=== PATIENT | female | born 1985 | race Two or more races ===

== ENCOUNTER 2023-03-30 09:50 | Outpatient (CLI) | payer OTHER | END 2023-03-30 09:57 | disposition home or self-care (01) | LOC: RX STUDY 09:50 | PROVIDERS: ATTEND Obstetrics & Gynecology Reproductive Endocrinology | DX: N70.11 Chronic salpingitis (principal) ==

== ENCOUNTER 2024-05-11 22:39 | Inpatient (IN) | payer OTHER ==
[~2024-05-11] VITALS: Ht 165.1 cm; Wt 84.4 kg
[2024-05-11 22:20] VITALS: BP 135/82
[2024-05-11] MEDS ORDERED: OBSTETRIX DHA1 EAC1 PO (22:41)
[2024-05-11] MEDS ORDERED: VITAMIN D310 MCG/1 M PO (22:42)
[2024-05-11] MEDS ORDERED: RINGERS SOLUTION,LACTATED 1,000 ML IV SCH (22:45)
[2024-05-11] MEDS ORDERED: AMPICILLIN SODIUM 2,000 MG VIAL IV ONE (23:00)
[2024-05-11 23:12] LABS: HEMATOCRIT 32.7 % (36.0-45.00); HEMOGLOBIN 11.1 g/dL (12.0-15.00); MEAN CELL VOLUME 82.6 fL (80.00-100.00); MEAN CORPUSCULAR HEMOGLOBIN 28.1 pg (27.00-32.0); MEAN CORPUSCULAR HGB CONC 34.1 g/dl (32.0-36.0); RED BLOOD COUNT 3.96 M/uL (4.00-6.00); RED CELL DISTRIBUTION WIDTH 13.5 % (11.5-14.5)
[2024-05-11 23:20] VITALS: BP 123/93
[2024-05-11 23:39] LABS: PLATELET COUNT 127 K/uL (150-450)
[2024-05-11] MEDS ORDERED: BETAMETHASONE ACETATE,SOD PHOS 30 MG/5 ML ML IM ONE (23:45)
[2024-05-11 23:46] LABS: INR 0.96; PROTHROMBIN TIME 10.5 SECONDS (9.0-11.5)
[2024-05-11 23:51] LABS: ALBUMIN 2.8 gm/dL (3.4-5.0); BILIRUBIN TOTAL 0.39 mg/dL (0.3-1.2); CALCIUM 8.8 mg/dL (8.5-10.1); CREATININE SERUM 0.57 mg/dL (0.55-1.02); GFR 118.08; GLOBULINA 2.9 G/DL (2.4-3.5); POTASSIUM 3.69 mEq/L (3.5-5.1); TOTAL PROTEIN 5.7 gm/dL (6.4-8.2)
[2024-05-12] VITALS (10 sets, daily range): BP systolic 118–148; BP diastolic 72–94; O2SAT 97
[2024-05-12] MEDS ORDERED: AMPICILLIN SODIUM 1,000 MG VIAL IV SCH ×2 (04:00→09:00)
[2024-05-12] MEDS ORDERED: OXYTOCIN 500 ML IV ONE (08:15)
[2024-05-12] MEDS ORDERED: AMPICILLIN SODIUM 2,000 MG VIAL IV ONE (08:30)
[2024-05-12] MEDS ORDERED: MORPHINE SULFATE 4 MG/ML CARTRIDGE IV ONE (13:15)
[2024-05-12] MEDS ORDERED: ONDANSETRON HCL 2 MG/ML VIAL ONE (16:38)
[2024-05-12] MEDS ORDERED: FAMOTIDINE/PF 20 MG/2 ML VIAL ONE (16:40)
[2024-05-12] MEDS ORDERED: ONDANSETRON HCL 2 MG/ML VIAL IV ONE (17:00)
[2024-05-12] MEDS ORDERED: FAMOTIDINE/PF 20 MG/2 ML VIAL IV PUSH ONE (17:00)
[2024-05-12] MEDS ORDERED: OXYTOCIN 20 UNITS/1000ML RL PIGGYBAG IV ONE (17:18)
[2024-05-12] MEDS ORDERED: ERYTHROMYCIN BASE OPHT 1GM EACH TUBE OP ONE ×2 (17:18→18:45)
[2024-05-12] MEDS ORDERED: CHLORHEXIDINE GLUCONATE 120 ML BOTTLE TOP ONE (17:18)
[2024-05-12] MEDS ORDERED: LIDOCAINE HCL 1% 10ML VIAL ONE (17:19)
[2024-05-12] MEDS ORDERED: CHLORHEXIDINE GLUCONATE 120 ML BOTTLE TOP SCH (18:30)
[2024-05-12] MEDS ORDERED: IBUprofen 400 MG TABLET PO PRN (18:30)
[2024-05-12] MEDS ORDERED: OXYTOCIN 1,000 ML IV SCH (18:30)
[2024-05-12] MEDS ORDERED: LIDOCAINE HCL 1% 10ML VIAL PERCUT ONE (18:45)
[2024-05-13 00:15] VITALS: BP 116/74
[2024-05-13 06:55] LABS: HEMOGLOBIN 9.8 g/dL (12.0-15.00); MEAN CELL VOLUME 81.6 fL (80.00-100.00); MEAN CORPUSCULAR HEMOGLOBIN 28.6 pg (27.00-32.0); RED BLOOD COUNT 3.44 M/uL (4.00-6.00)
[2024-05-13 06:59] LABS: PLATELET COUNT 129 K/uL (150-450)
[2024-05-13 08:00] VITALS: BP 124/80
[2024-05-13] MEDS ORDERED: IRON FUM,PS/FOLIC/BCOMP,C NO.9 1 CAP CAPSULE PO SCH (09:00)
[2024-05-13] MEDS ORDERED: DOCUSATE SODIUM 100MG CAP PO SCH (13:46)
[2024-05-13 16:42] VITALS: BP 108/74
[2024-05-14 00:04] VITALS: BP 134/86
[2024-05-14 09:00] VITALS: BP 139/89
== END 2024-05-14 18:32 | disposition home or self-care (01) | DRG 805 ==
LOC: LDR 22:39 → OB/GYN 05-12 19:25
PROVIDERS: Obstetrics & Gynecology; ADMIT Obstetrics & Gynecology; ATTEND Obstetrics & Gynecology
PROC: 4A1HXCZ Monitoring of Products of Conception, Cardiac Rate, External Approach (ICD-10-PCS; 2024-05-11)
PROC: 10E0XZZ Delivery of Products of Conception, External Approach (ICD-10-PCS; principal; 2024-05-12)
PROC: 0HQ9XZZ Repair Perineum Skin, External Approach (ICD-10-PCS; 2024-05-12)
DX: O70.0 First degree perineal laceration during delivery (principal); O60.14X0 Preterm labor third trimester with preterm delivery third trimester, not applicable or unspecified; Z37.0 Single live birth; Z3A.36 36 weeks gestation of pregnancy